=== PATIENT | male | born 1965 | race Caucasian/White ===

== ENCOUNTER → 2017-08-19 | Day surgery (SDC) | payer BC ==
[~2017-08-19] MED LIST: BUPIVACAINE/EPINEPHRINE 0.25% 50 ML VIAL ONE; KETOROLAC TROMETHAMINE 30 MG/ML (IVP) VIAL IV PUSH ONE; ONDANSETRON HCL 4 MG/2 ML VIAL IV PUSH ONE; PROPOFOL 200 MG/20 ML AMP IV ONE; ceFAZolin 2 GM PREMIX 50 ML ONE
--- NOTE | 2017-08-19 14:47 | TN ---
cc: LEIF ZAMBRANO M.D. DATE OF SURGERY: 08/19/2017 PREOPERATIVE DIAGNOSIS Symptomatic umbilical hernia. POSTOPERATIVE DIAGNOSIS Symptomatic umbilical hernia. PROCEDURE Open repair umbilical hernia with mesh. SURGEON Dr. Leif Zambrano. ANESTHESIA General. MUD GRINDER Preethi Paniagua, MS III. INDICATIONS This is a pleasant 52-year-old gentleman who noticed a bulge over the past several months in the umbilicus that is increasing and painful. Dr. Ramos tried to reduce it and it created discomfort. The patient had a CT scan which confirmed the presence of an umbilical hernia. He is interested in pursuing operative repair. INTRAOPERATIVE FINDINGS Umbilical hernia with incarcerated preperitoneal fat. Hernia defect approximately 1 cm in size. ESTIMATED BLOOD LOSS Minimal. DESCRIPTION OF PROCEDURE IN DETAIL The patient was identified as Salvador Morejon, taken to the operating room and placed in supine position. Sequential compression devices were placed on bilateral lower extremities. Following induction of adequate general anesthesia the patient's abdomen was prepped and draped in the usual sterile fashion with Betadine. A timeout procedure was performed. Following completion of the timeout procedure to everyone's satisfaction within the room, a proposed infraumbilical transverse incision was made with a marking pen and infiltrated with local anesthetic. The incision was carried out with a scalpel and dissection continued posteriorly relieving the umbilical skin off of the herniated preperitoneal fatty tissue. This was from surrounding subcutaneous tissue and the umbilical hernia defect was identified at the fascial level. This extended slightly laterally in both directions to allow for reduction of the preperitoneal fat. The hernia defect was cleared circumferentially over the anterior fascia using electrocautery and the space between the subcutaneous fatty tissue and the fascia. The primary defect was approximated with inverted interrupted 0 Prolene sutures. A small piece of mesh about 4 x 6 cm in size was placed in the onlay position and held in place in six positions with 0 Ethibond sutures making the mesh taut. Irrigation ensued. The umbilicus was reformed with two interrupted 2-0 Vicryl sutures. 2-0 Vicryl was placed in the deep dermis and a running 4-0 Monocryl was placed in the subcuticular position of the skin. Dressings were applied with Mastisol, half-inch brown Steri-Strips, gauze and Tegaderm. The patient tolerated the procedure without apparent complication. Sponge, needle and instrument counts were correct at the end of the case. MD REBECCA Lopez/RAPHAEL /2:19 PM /2:37 PM
== END | disposition home or self-care (01) ==
LOC: ESDC 12:12
PROVIDERS: ATTEND Surgery Trauma Surgery
DX: K42.9 Umbilical hernia without obstruction or gangrene (principal)
CPT/HCPCS: 00750; 49585; C1781; J0690; J1885; J2405; J3010